=== PATIENT | male | born 1945 | race Two or more races ===

== ENCOUNTER 2019-03-28 10:19 | Emergency (ER) | payer MEDICARE, OTHER ==
[~2019-03-28] VITALS: Ht 170.2 cm; Wt 94.8 kg
[2019-03-28] MEDS: HYDROcodone-ACET 10/325MG TAB PO ONE (12:17)
[2019-03-28 12:30] VITALS: BP 111/60
== END 2019-03-28 12:40 | disposition home or self-care (01) ==
LOC: EDBD 10:19 → ER 10:19
DX: S32.040A Wedge compression fracture of fourth lumbar vertebra, initial encounter for closed fracture (principal); S20.211A Contusion of right front wall of thorax, initial encounter; E11.9 Type 2 diabetes mellitus without complications; E78.5 Hyperlipidemia, unspecified; F17.210 Nicotine dependence, cigarettes, uncomplicated; I10 Essential (primary) hypertension; Z98.61 Coronary angioplasty status; V49.9XXA Car occupant (driver) (passenger) injured in unspecified traffic accident, initial encounter; Y93.89 Activity, other specified; Y92.89 Other specified places as the place of occurrence of the external cause; Y99.8 Other external cause status
CPT/HCPCS: 71046; 72100; 93005